=== PATIENT | female | born 1990 | race Caucasian/White ===

== ENCOUNTER 2020-01-17 05:30 | Inpatient (IN) | payer OTHER ==
[2020-01-17 06:23] VITALS: BMI 32.8
[2020-01-17] MEDS ORDERED: PCA PUMP NR ONE (08:04)
[2020-01-17] MEDS ORDERED: FENTANYL/BUPIVACAINE/NS/PF - PCEA - 50 ML DISP.SYRIN EP ONE ×2 (08:04→12:24)
[2020-01-17] MEDS ORDERED: NALOXONE HCL 0.4 MG/ML VIAL IVPUSH PRN (08:10)
[2020-01-17] MEDS ORDERED: BUPIVACAINE HCL/PF 0.25% (2.5MG/ML) 10 ML VIAL ONE ×2 (08:13→13:05)
[2020-01-17] MEDS ORDERED: FENTANYL/BUPIVACAINE/NS/PF - PCEA - 50 ML DISP.SYRIN EP SCH (08:15)
[2020-01-17] MEDS ORDERED: OXYTOCIN 30 UNITS in 0.9% NS 30 UNIT/500 ML INFUS.BAG IVPB SCH (08:30)
[2020-01-17] MEDS ORDERED: ELECTROLYTE-148 SOLN 1,000 ML IV SCH (08:30)
[2020-01-17] MEDS ORDERED: OXYTOCIN 30 UNITS in 0.9% NS 30 UNIT/500 ML INFUS.BAG IVPB ONE (08:55)
[2020-01-17 10:27] LABS: POC NITRAZINE POS
[2020-01-17] MEDS ORDERED: OXYTOCIN 20 UNITS in 0.9% NS 20 UNIT/1,000 ML INFUS.BAG IV ONE (14:48)
[2020-01-17] MEDS ORDERED: LIDOCAINE HCL 1% PRESERVATIVE FREE - 30ML VIAL ONE (14:48)
[2020-01-17] MEDS ORDERED: METHYLERGONOVINE MALEATE 0.2 MG/1 ML AMP IM PRN (16:02)
[2020-01-17] MEDS ORDERED: BENZOCAINE 28 GM HEMORRHOIDAL OINTMENT TP PRN (16:02)
[2020-01-17] MEDS ORDERED: BENZOCAINE 20% 57 GM BOTTLE TP PRN (16:02)
[2020-01-17] MEDS ORDERED: oxyCODONE HCL 5 MG TABLET PO PRN (16:02)
[2020-01-17] MEDS ORDERED: WITCH HAZEL 50% (TUCKS) 40 PAD/JAR PAD TP PRN (16:02)
[2020-01-17] MEDS ORDERED: BISACODYL 10 MG SUPP.RECT RC PRN (16:02)
[2020-01-17] MEDS ORDERED: OXYTOCIN 20 UNITS in 0.9% NS 20 UNIT/1,000 ML INFUS.BAG IV SCH (16:15)
[2020-01-17] MEDS ORDERED: IBUPROFEN 600 MG TABLET (FP) PO ONE (18:38)
[2020-01-17] MEDS ORDERED: ACETAMINOPHEN 325 MG TABLET (FP) ONE (18:38)
[2020-01-17] MEDS: ACETAMINOPHEN 325 MG TABLET (FP) PO PRN (18:40)
[2020-01-17] MEDS: IBUPROFEN 600 MG TABLET (FP) PO PRN (18:40)
[2020-01-18 08:01] LABS: BASO % 0.6 % (0-2.0); HEMATOCRIT 34.5 % (32.4-45.2); HEMOGLOBIN 11.6 GM/dL (10.7-15.3); LYMPH % 21.8 % (8-40); MCH 30.9 pg (25.7-33.7); MCHC 33.5 g/dl (32.0-36.0); MEAN PLT VOLUME 8.8 fl (7.5-11.1); MONO % 6.6 % (3.8-10.2); PLATELET COUNT 223 K/MM3 (134-434); RBC 3.74 M/mm3 (3.60-5.2); RDW 12.7 % (11.6-15.6); WHITE BLOOD COUNT 10.5 K/mm3 (4.0-10.0)
[2020-01-18] MEDS: ACETAMINOPHEN 325 MG TABLET (FP) PO PRN (08:59)
[2020-01-18] MEDS: IBUPROFEN 600 MG TABLET (FP) PO PRN (09:00)
[2020-01-18] MEDS: PRENATAL VITAMINS W/ FOLIC ACID TABLET (FP) PO SCH (09:00)
[2020-01-18] MEDS ORDERED: SENNOSIDES/DOCUSATE COMBO (SENNA PLUS) TABLET (UD) PO PRN (22:00)
[2020-01-19 09:17] VITALS: BP 122/72; PULSE 65; TEMP 98.3
[2020-01-19] MEDS: PRENATAL VITAMINS W/ FOLIC ACID TABLET (FP) PO SCH (09:44)
== END 2020-01-19 13:00 | disposition home or self-care (01) | DRG 560 ==
LOC: JLDR 05:30 → J3W 20:04
PROVIDERS: ADMIT Obstetrics & Gynecology; ATTEND Obstetrics & Gynecology
PROC: 10E0XZZ Delivery of Products of Conception, External Approach (ICD-10-PCS; principal; 2020-01-17)
PROC: 3E033VJ Introduction of Other Hormone into Peripheral Vein, Percutaneous Approach (ICD-10-PCS; 2020-01-17)
DX: O48.0 Post-term pregnancy (principal); Z3A.40 40 weeks gestation of pregnancy; Z37.0 Single live birth; Z88.0 Allergy status to penicillin; Z88.1 Allergy status to other antibiotic agents
CPT/HCPCS: 36415; 59409; 83986-QW; 85025